=== PATIENT | male | born 1970 | race Caucasian/White ===

== ENCOUNTER 2019-12-14 13:35 | Outpatient (REF) | payer OTHER, SELFPAY ==
[2019-12-19 01:50] LABS: SARS-CoV-2 RNA Undetected (Undetected); SARS-CoV-2 Specimen Source Nasopharynx
== END 2019-12-14 13:55 ==
LOC: NCHCN 13:35
PROVIDERS: PCP General Practice; Visit Provider Nurse Practitioner Family
DX: Z20.828 Contact with and (suspected) exposure to other viral communicable diseases (principal)
CPT/HCPCS: U0003

== ENCOUNTER 2020-10-04 14:16 | Outpatient (REF) | payer OTHER, SELFPAY ==
[2020-10-04 14:37] LABS: Anion Gap 7.3 mmol/L (3-11); BUN 14 mg/dL (7-18); CO2 29.7 mmol/L (21.0-32.0); CREATININE 1.3 mg/dL (0.70-1.30); Calcium 8.9 mg/dL (8.5-10.1); Calculated LDL 97 mg/dL (<100); Chloride 106 mmol/L (98-107); Cholesterol 172 mg/dL (<200); Estimated GFR 58.43 (mL/min/1.73m2); Glucose 95 mg/dL (74-106); HDL Cholesterol 46 mg/dL (40-60); Potassium 4.4 mmol/L (3.5-5.1); Sodium 143 mmol/L (136-145); Triglyceride 146 mg/dL (<150)
== END 2020-10-04 14:17 | disposition home or self-care (01) ==
LOC: NCHCN 14:16
PROVIDERS: PCP General Practice; Visit Provider Nurse Practitioner Family
DX: Z00.00 Encounter for general adult medical examination without abnormal findings (principal); Z13.220 Encounter for screening for lipoid disorders; Z13.228 Encounter for screening for other metabolic disorders
CPT/HCPCS: 80048; 80061

== ENCOUNTER → 2021-03-09 11:17 | Outpatient (BNVA) | payer OTHER, SELFPAY | PROVIDERS: PCP Nurse Practitioner Family; Referring Provider Nurse Practitioner Family; Visit Provider Physical Therapy Assistant | DX: Z12.11 Encounter for screening for malignant neoplasm of colon (principal) ==

== ENCOUNTER 2021-05-17 00:56 | Outpatient (CLI) | payer OTHER, SELFPAY ==
[2021-05-17 15:29] LABS: Source Nasal/Nares
[2021-05-17 16:57] LABS: COVID-19 PCR Negative (Negative)
== END 2021-05-17 00:57 | disposition home or self-care (01) ==
LOC: LBO 00:56
PROVIDERS: PCP Nurse Practitioner Family; Visit Provider Surgery
DX: Z20.822 Contact with and (suspected) exposure to COVID-19 (principal)
CPT/HCPCS: 87635

== ENCOUNTER 2021-05-19 06:03 | Day surgery (SDC) | payer OTHER, SELFPAY ==
--- NOTE | 2021-05-18 22:15 | ROE_ITS ---
Date of service: 05/19/21 Operative Note Operative Note DATE OF PROCEDURE: 05/19/21 PRE-OP DIAGNOSIS: CRC screening SURGEON: Sasha De La Fuente ANESTHESIA TYPE: General:No Airway Refer to Anesthesia Record Patient was transported to: same day Patient's condition: stable Procedure Description: After informed consent was obtained the patient was taken to the procedure room and placed in a left decubitous position. Monitors were applied and a time out was done. The patients name, date of , procedure, allergies to medications and metal in their body was reviewed. The patient was then sedated. Once sedated and comfortable a rectal exam was done. External exam was normal, other than a very small external hemorrhoidal tag it was o'clock position. Internal exam revealed a normal sphincter tone and no palpable masses. The scope was then introduced and retrofelexed. No internal hemorrhoids were identified. The scope was then advanced to the cecum without difficulty. The TI and appendiceal orifice were identified. The prep was good. Interaction time was 7 minutes. the scope was then slowly retracted over minutes back into the rectum. Polyps were removed at there are no polyps, AVMs or diverticula.. Random biopsies were taken of the cecum, 60, and in the rectum-he is a [place] and had some problems with chronic diarrhea in the past. The scope was removed and the patient was woken up and taken back to Same day surgery in stable condition. The patient tolerated the procedure well and there were no immediate complications. Follow up: The patient should follow up in 10 years unless they develop changes in bowel habits or other new gastrointestinal complaints.
--- NOTE | 2021-05-18 22:17 | W.PM.DSUDISC ---
Discharge Plan Disposition Patient Disposition: HOME Condition: Good Discharge Details Reason For Visit: colon scope Attending Provider: Sasha De La Fuente Primary Care Provider: Libia Butcher Home Meds and New Rx's Prescriptions: Discontinued polyethylene glycol 3350 17 gram/dose powder 238 g PO ONCE Qty: 238 RF: 0 bisacodyl [Dulcolax (bisacodyl)] 5 mg tablet,delayed release (DR/EC) 5 mg PO ONCE Qty: 4 RF: 0 Discharge Instructions Additional Instructions: DSU Colonoscopy Post-Op Instructions Instructions for Everyone who is given Anesthesia: For your safety, please do the following for the next twenty-four (24) hours: *Do Not operate a motor vehicle (car, truck, motorcycle, etc.) *Do Not drink alcoholic beverages or use any recreational drugs for the first 24 hours or while taking pain medications. The medications in your body may have a reaction that can be dangerous. *Do Not make any important decisions or sign any important papers. Findings:Normal I did take a few random biopsies; I will send you a letter in 2 to 3 weeks time with the results. Follow up: Repeat in 10 years time 1. No lifting over 20 pounds or strenuous activity for the first 24 hours after your procedure. After 24 hours there are no restrictions on your activity but you may feel fatigued for a few days. 2. After you arrive home you may have a light meal and return to your normal diet as you can tolerate it without feeling sick to your stomach. 3. You may have a bloated, gaseous feeling in your belly (abdomen) after a colonoscopy. Passing gas and belching will help. Walking or lying down on your left side with your knees flexed may relieve the discomfort. Call the office at [phone] (Office) or [phone] (Hospital) right away if you notice any of the following: a.Vomiting of blood or ?coffee ground stools?. b.Rectal bleeding 1Tbsp, blood clots or continuous bleeding. c.Severe belly (abdominal) pain. d.A hard distended belly (abdomen) and an inability to pass gas. 4. Please don?t expect to have a normal BM (bowel movement) for 2-3 days after your procedure. 5. If there are questions regarding the findings of your procedure, please contact your doctor 6. If you are unable to contact your doctor with a problem, contact the [facility] at [phone]. 7. Continue all your regular medications unless directed otherwise. I understand the above instructions and have no questions. Signature of Patient or Adult Escort Name of Responsible Adult Escort Signature of Nurse Date/Time Activity:: see above Diet:: see above Discharge Orders Discharge Orders: Discharge Order (Routine); Ordered 05/18/21 Ordered By: Sasha De La Fuente DS: Diagnosis Discharge Diagnosis (1) Screening for colon cancer: Status: Acute
[2021-05-19 06:20] VITALS: BP 120/93; PULSE 65; RESP 17; TEMP 36.3; O2SAT 98
[2021-05-19] MEDS: Lactated Ringers 1,000 ML 80 ML IV (06:33)
--- NOTE | 2021-05-19 06:40 | NUR.NOTE ---
Nursing Note:Pt got a bit light headed after IV was placed. Pt was provided w/ cool cloths to head and neck, foot of bed raised and HOB lowered, cool air applied until Pt felt better. Pt then returned to 45 degree HOB as requested. Pt has call briones and is encouraged to ring if needed.HE
--- NOTE | 2021-05-19 07:00 | W.ANESPRE ---
General Info Date of Service Date Performed: 06/07/21 Height: 5 ft 10 in Weight: 84.4 kg Body Mass Index (BMI): 26.6 Surgical Procedure: Operation Date: 05/19/21 07:35 Proposed Procedures Side Surgeon p Festus De La Fuente, Meds Allergies and Home Medications Allergies Allergy/AdvReac Type Severity Reaction Status Date / Time No Known Allergies Allergy Verified 05/19/21 06:25 Current Visit Medications: Current Medications Generic Name Dose Route Start Last Admin Trade Name Freq PRN Reason Stop Dose Admin Hyoscyamine Sulfate 0.125 mg 05/18/21 22:15 Hyoscyamine 0.125 Mg Sl/Oral/Chew SL DIRECTED PRN Ringer's Solution 1,000 mls @ 80 mls/hr 05/19/21 06:00 05/19/21 06:33 IV 06/17/21 23:59 80 mls/hr INFUSION KRISTEL Administration IV Miscellaneous Supplies 1 each 05/19/21 06:00 Iv Access IV 06/17/21 23:59 DIRECTED KRISTEL Ondansetron HCl 4 mg 05/18/21 22:15 Ondansetron 4 Mg/2 Ml Vial IVP Q4H PRN PRN Nausea / Vomiting Sodium Chloride 0 ml 05/19/21 06:00 Normal Saline Flush 10 Ml Syr IV 06/17/21 23:59 PRN PRN Sodium Chloride 0 ml 05/19/21 06:00 Normal Saline 10 Ml Vial IJ 06/17/21 23:59 DIRECTED PRN Sterile Water 0 ml 05/19/21 06:00 Water,Injection,Sterile 10 Ml Vial IJ 06/17/21 23:59 DIRECTED PRN PFSH Active Problems Active Problems: Problem Status Onset Code Screening for colon cancer Z12.11 Surgical History Surgical History Hx of colonoscopy Tobacco Smoking/Tobacco Use Status: Never Alcohol Alcohol Intake: current Alcohol intake frequency: a few times a month Alcohol type: beer Substance Use Substance use: Never Substance use type: does not use Vital Signs and Lab Results Vital Signs Most Recent Vital Signs in EMR: Most Recent Vital Signs Temp Pulse Resp BP Pulse Ox 36.3 C L 65 17 120/93 H 98 05/19/21 06:20 05/19/21 06:20 05/19/21 06:20 05/19/21 06:20 05/19/21 06:20 Lab Results Blood Type / Crossmatch: No Data to Display Complete Blood Count: No Data to Display Complete Metabolic Panel: No Data to Display Liver Function Panel: No Data to Display Coagulation Panel: No Data to Display Cardiac Panel: No Data to Display Arterial Blood Gas: No Data to Display Venous Blood Gas: No Data to Display Pancreas Panel: No Data to Display Thyroid Panel: No Data to Display Infectious Disease: Coronavirus (COVID-19)(PCR) Negative (Negative) 05/17/21 11:00 05/17/21 Coronavirus 2019 Source Nasal/Nares 05/17/21 11:00 05/17/21 Blood Cultures: No Data to Display Toxicology Panel: No Data to Display Anesthesia Assessment and Plan Anesthesia History Personal History: No History of Anesthesia Complications Family History: No Family History of Anesthesia Complications Exercise Tolerance Exercise Tolerance: Metabolic Equivalents>4 Pertinent Negatives Pertinent Negatives: No Symptoms of GERD Cardiac & Pulmonary Exam Cardiac Exam: Normal S1/S2 Heart Sounds Pulmonary Exam: Clear Bilateral Breath Sounds Implantable Cardiac Device Does patient have a Pacemaker or an ICD?: No Airway Exam Known Difficult Airway: No Mallampati Class: 1 Mouth Opening: Normal (> 3cm) Thyromental Distance: Greater than 3 cm Neck Range of Motion: Full ROM Neck Circumference: Normal Teeth Condition: Normal Dentition ASA Classification ASA Score: ASA 1 Emergency Case?: No NPO Status NPO Status: NPO Clears >2 hours, Solids >8 hours Anesthesia Plan Resuscitation Status: Full Code Anesthesia Technique: General Anesthesia Airway Planned: Natural Airway Monitors Used: Standard Monitors
[2021-05-19 07:13] VITALS: BMI 26.6
--- NOTE | 2021-05-19 07:26 | W.PM.HP.N ---
Date of service: 05/19/21 Time of Service: 07:26 Assessment and Plan Assessment and plan (1) Screening for colon cancer: Status: Acute Assessment and plan: Plan:Colonscopy w/ MAC The patient will be scheduled by my office. The pt understands that they need to do a bowel prep and the importance of hydration during this. The patient understands there is a theoretical risk of renal failure. For healthy patients we use Gatorade/Miralax Prep. For anyone with renal concerns- GoLytely will be used. Plavix and coumadin will need to be held except in unusual circumstances. Patients in A. Fib do not need to be bridged with Lovenox or on CVA prophylaxis. A baby ASA can be continued but full dose ASA needs to be stopped for 10 days prior to the procedure. A complete H & P is required within 30 days of the procedure. MAC is used for the colonoscopy. Colonoscopy does not require antibiotics prophylaxis. Thank you for allowing me to participate in the care of this Patient. A copy of the Endoscopy report will be forwarded to your office. Informed consent is obtained for the procedural (explained in simple layman's terms that the pt and/or family could understand) explaining risks vs benefits and alternatives to the procedure and consequences if we do not do the procedure and need/rational for the procedure. Risks include but are not limited to: bleeding, infection, perforation of colon. This would necessitate emergency surgery to repair the damage w/ possible ostomy; and other associated complications w/ the required surgery. Also complications of anesthesia including aspiration, SC/CVA/. I discussed with the patient would they could expect during the procedure, post procedure and recovery time and risks. The patient understands that they need to have a ride home after the procedure. The patient was given all this information in writing and expressed understanding. to your office. If there are any questions or concerns please feel free to contact our office. History of Present Illness Narrative: pt has a benign medical history presents for colonoscopy screening pre-op. He reports having a Colonoscopy in 2004, which was unremarkable. He denies a family history of colon cancer. He denies any changes in bowel habits including bloody or black tarry stools, abdominal pain, diarrhea or constipation. He denies constitutional symptoms. Denies use of marijuana or any other recreational or illegal drugs. He denies chest pain, palpitations, dyspnea or dyspnea with exertion. He reports being physically active running (6+ miles) and lifting weights 3-4x/wk. He denies prior history or family history of adverse reactions or complications with anesthesia. The patient denies any history of stroke, SC, seizures, bleeding or clotting disorders. He denies having any implanted metal in his body. Patient completed a bowel prep last night. He has no more stool today. He is not having any chest pain or shortness of breath. No changes in his health status or medications. No abdominal pain or nausea. No fevers. All questions answered and patient is stable for procedure Review of Systems All systems reviewed & are unremarkable except as noted in HPI and below PFSH All Active Problems Screening for colon cancer (Acute) Surgical History Hx of colonoscopy Social History Smoking/Tobacco Use Status: Never Smoking risk assessment performed?: Yes Alcohol Intake: current Alcohol Intake frequency: a few times a month Alcohol type: beer Drug use: Never Substance use type: does not use Current gender identity: male Do you feel safe at home: Yes Do you feel safe in your relationship?: Yes Meds Allergies and Home Medications Allergies Allergy/AdvReac Type Severity Reaction Status Date / Time No Known Allergies Allergy Verified 05/19/21 06:25 Exam Narrative Exam Narrative: PHYSICAL EXAM GENERAL APPEARANCE: Alert, healthy appearance, oriented, in no acute distress HEAD, EYES, EARS, NECK, THROAT: Head is normocephalic, pupils equal, round, reactive to light and accommodation, ocular movement intact, sclera clear and no jaundice. Dentition intact. No sore throat. No jaw pain. No thrush LUNGS: normal respiration/nl chest excursion. Clear to auscultation B/l no R/R/W HEART: Regular rate and rhythm, ABDOMEN: non tender to palpation, no masses or distention, no hernias. Normal bowel sounds NEURO: no focal neuro deficits. Results Last Vital Signs Temp 36.3 C L 05/19/21 06:20 Pulse 65 05/19/21 06:20 Resp 17 05/19/21 06:20 BP 120/93 H 05/19/21 06:20 Pulse Ox 98 05/19/21 06:20
--- NOTE | 2021-05-19 07:51 | BOWEL_PTH ---
PATIENT: Tito Keith LOC: [facility] U#:[id number] AGE/SX: 50/M ROOM: RE05/19/[address]: Sasha De La Fuente : 1970 BED: DIS: 05/19/2021 SPEC #: [id number] RECD: 05/19/21 12:48 STATUS: JAZZY RELary #: [id number] DIMAS: 05/19/21 07:[address]: Sasha De La Fuente DEPT: Surgical Specimen RECD BY: Keya Wells ENTERED: 05/19/21 12:50 SP TYPE: Bowel OTHR DR: Libia Butcher Tissues: 1 - BIOPSY BOWEL 2 - BIOPSY BOWEL 3 - BIOPSY BOWEL Procedures: GROSS AND MICRO LEVEL 4 Comments: [id number]
--- NOTE | 2021-05-19 07:57 | W.ANESPRE ---
General Info Height: 5 ft 10 in Weight: 84.4 kg Body Mass Index (BMI): 26.6 Surgical Procedure: Operation Date: 05/19/21 07:35 Proposed Procedures Side Surgeon p Colonoscopy Sasha De La Fuente DO Meds Allergies and Home Medications Allergies Allergy/AdvReac Type Severity Reaction Status Date / Time No Known Allergies Allergy Verified 05/19/21 06:25 Current Visit Medications: Current Medications Generic Name Dose Route Start Last Admin Trade Name Freq PRN Reason Stop Dose Admin Hyoscyamine Sulfate 0.125 mg 05/18/21 22:15 Hyoscyamine 0.125 Mg Sl/Oral/Chew SL DIRECTED PRN Ringer's Solution 1,000 mls @ 80 mls/hr 05/19/21 06:00 05/19/21 06:33 IV 06/17/21 23:59 80 mls/hr INFUSION KRISTEL Administration IV Miscellaneous Supplies 1 each 05/19/21 06:00 Iv Access IV 06/17/21 23:59 DIRECTED KRISTEL Ondansetron HCl 4 mg 05/18/21 22:15 Ondansetron 4 Mg/2 Ml Vial IVP Q4H PRN PRN Nausea / Vomiting Sodium Chloride 0 ml 05/19/21 06:00 Normal Saline Flush 10 Ml Syr IV 06/17/21 23:59 PRN PRN Sodium Chloride 0 ml 05/19/21 06:00 Normal Saline 10 Ml Vial IJ 06/17/21 23:59 DIRECTED PRN Sterile Water 0 ml 05/19/21 06:00 Water,Injection,Sterile 10 Ml Vial IJ 06/17/21 23:59 DIRECTED PRN PFSH Active Problems Active Problems: Problem Status Onset Code Screening for colon cancer Z12.11 Surgical History Surgical History Hx of colonoscopy Tobacco Smoking/Tobacco Use Status: Never Alcohol Alcohol Intake: current Alcohol intake frequency: a few times a month Alcohol type: beer Substance Use Substance use: Never Substance use type: does not use Vital Signs and Lab Results Vital Signs Most Recent Vital Signs in EMR: Most Recent Vital Signs Temp Pulse Resp BP Pulse Ox 36.3 C L 65 17 120/93 H 98 05/19/21 06:20 05/19/21 06:20 05/19/21 06:20 05/19/21 06:20 05/19/21 06:20 Lab Results Blood Type / Crossmatch: No Data to Display Complete Blood Count: No Data to Display Complete Metabolic Panel: No Data to Display Liver Function Panel: No Data to Display Coagulation Panel: No Data to Display Cardiac Panel: No Data to Display Arterial Blood Gas: No Data to Display Venous Blood Gas: No Data to Display Pancreas Panel: No Data to Display Thyroid Panel: No Data to Display Infectious Disease: Coronavirus (COVID-19)(PCR) Negative (Negative) 05/17/21 11:00 05/17/21 Coronavirus 2019 Source Nasal/Nares 05/17/21 11:00 05/17/21 Blood Cultures: No Data to Display Toxicology Panel: No Data to Display Anesthesia Assessment and Plan Anesthesia History Personal History: No History of Anesthesia Complications Family History: No Family History of Anesthesia Complications Exercise Tolerance Exercise Tolerance: Metabolic Equivalents>4 Implantable Cardiac Device Does patient have a Pacemaker or an ICD?: No Airway Exam Known Difficult Airway: No Mallampati Class: 1 Mouth Opening: Normal (> 3cm) Thyromental Distance: Greater than 3 cm Neck Range of Motion: Full ROM Neck Circumference: Normal Teeth Condition: Normal Dentition
[2021-05-19 08:07] VITALS: BP 128/78; PULSE 58; RESP 15; TEMP 36.7; O2SAT 98
--- NOTE | 2021-05-19 08:14 | W.ANESPOSTOP ---
Postoperative Evaluation Date, Time and Location Date Performed: 05/19/21 Time Performed: 08:14 Patient Location: Day Surgery Unit Vital Signs Most Recent Imported Vital Signs: Most Recent Vital Signs Temp Pulse Resp BP Pulse Ox 36.7 C 58 L 15 128/78 98 05/19/21 08:07 05/19/21 08:07 05/19/21 08:07 05/19/21 08:07 05/19/21 08:07 Pain Score Most Recent Pain Score: Most Recent Pain Score Pain Level 0 05/19/21 08:07 Assessment Mental Status: Arousable with meaningful communication Airway and Respiratory Function: Patent airway with normal (patient baseline) respiratory exam Cardiovascular Function: Hemodynamically Stable Hydration Status: Adequately Hydrated Nausea & Vomiting: No Nausea or Vomiting Pain: Pt. Denies Any Pain Peripheral Nerve Block: Patient did not receive a nerve block
[2021-05-19 08:40] VITALS: BP 117/85; PULSE 54; RESP 16; TEMP 36.8; O2SAT 100
== END 2021-05-19 09:13 | disposition home or self-care (01) ==
LOC: SUR 06:04
PROVIDERS: PCP Nurse Practitioner Family; Visit Provider Surgery
PROC: 0DJD8ZZ Inspection of Lower Intestinal Tract, Via Natural or Artificial Opening Endoscopic (ICD-10-PCS; CPT 45378; principal; 2021-05-19 07:30)
DX: Z12.11 Encounter for screening for malignant neoplasm of colon (principal)
CPT/HCPCS: 45380; 88305; J2704

== ENCOUNTER 2022-11-12 17:27 | Outpatient (REF) | payer OTHER, SELFPAY ==
[2022-11-12 18:13] LABS: ALT 60 U/L (16-63); AST 31 U/L (15-37); Albumin 4.3 g/dL (3.4-5.0); Alkaline Phosphatase 94 U/L (46-116); Anion Gap 8.8 mmol/L (3-11); BUN 16 mg/dL (7-18); Bilirubin, Total 0.6 mg/dL (0.2-1.0); CO2 28.2 mmol/L (21.0-32.0); CREATININE 1.4 mg/dL (0.70-1.30); Calcium 8.8 mg/dL (8.5-10.1); Calculated LDL 112 mg/dL (<100); Chloride 104 mmol/L (98-107); Cholesterol 177 mg/dL (<200); Estimated GFR 60.47 (mL/min/1.73m2); Glucose 98 mg/dL (74-106); HDL Cholesterol 47 mg/dL (40-60); Potassium 4.1 mmol/L (3.5-5.1); Sodium 141 mmol/L (136-145); Total Protein 7.3 g/dL (6.4-8.2); Triglyceride 91 mg/dL (<150)
[2022-11-13 19:50] LABS: PSA, Screening 0.6 ng/mL (<=3.5)
== END 2022-11-12 17:28 | disposition home or self-care (01) ==
LOC: NCHCN 17:27
PROVIDERS: PCP Nurse Practitioner Family; Visit Provider Nurse Practitioner Family
DX: Z13.220 Encounter for screening for lipoid disorders (principal); Z12.5 Encounter for screening for malignant neoplasm of prostate; Z13.1 Encounter for screening for diabetes mellitus
CPT/HCPCS: 80053; 80061; 84153

== ENCOUNTER 2023-11-01 12:44 | Outpatient (REF) | payer OTHER, SELFPAY ==
[2023-11-01 15:07] LABS: Abs Immature Grans 0.01 10^3/uL (0.0-0.06); Absolute Basophil Count 0.07 10^3/uL (0.0-0.2); Absolute Eosinophil Count 0.15 10^3/uL (0.0-0.7); Absolute Lymphocyte Count 2.23 10^3/uL (1.2-3.4); Absolute Monocyte Count 0.83 10^3/uL (0.1-0.8); Absolute Neutrophil Count 6.28 10^3/uL (1.2-6.7); Basophils % 0.7 %; Eosinophils % 1.6 %; HCT 49.4 % (40.0-50.0); HGB 17.1 g/dL (13.5-17.5); Immature Grans % 0.1 %; Lymphocytes % 23.3 %; MCHC 34.6 % (32.0-36.0); MCV 90 fL (80-95); MPV 10.1 fL (8.0-11.0); Monocytes % 8.7 %; Neutrophils % 65.6 %; Platelet Count 274 10^3/uL (130-400); RBC 5.52 10^6/uL (4.36-5.78); RDW 12.3 % (11.8-14.1); RDW-SD 40.8 fL; WBC 9.57 10^3/uL (4.4-10.8)
[2023-11-01 15:20] LABS: ALT 71 U/L (16-63); AST 31 U/L (15-37); Albumin 4.3 g/dL (3.4-5.0); Alkaline Phosphatase 96 U/L (46-116); Anion Gap 5.2 mmol/L (3-11); BUN 14 mg/dL (7-18); Bilirubin, Total 0.5 mg/dL (0.2-1.0); CO2 31.8 mmol/L (21.0-32.0); CREATININE 1.2 mg/dL (0.70-1.30); Calcium 9.2 mg/dL (8.5-10.1); Calculated LDL 83 mg/dL (<100); Chloride 103 mmol/L (98-107); Cholesterol 178 mg/dL (<200); Estimated GFR 72.31 (mL/min/1.73m2); Glucose 93 mg/dL (74-106); HDL Cholesterol 45 mg/dL (40-60); Potassium 4.7 mmol/L (3.5-5.1); Sodium 140 mmol/L (136-145); Total Protein 7.3 g/dL (6.4-8.2); Triglyceride 252 mg/dL (<150)
== END 2023-11-01 12:45 | disposition home or self-care (01) ==
LOC: NCHCN 12:44
PROVIDERS: Visit Provider Nurse Practitioner Family
DX: Z13.6 Encounter for screening for cardiovascular disorders (principal); Z13.0 Encounter for screening for diseases of the blood and blood-forming organs and certain disorders involving the immune mechanism
CPT/HCPCS: 80053; 80061; 85025

== ENCOUNTER 2024-12-10 16:45 | Outpatient (REF) | payer OTHER, SELFPAY ==
[2024-12-10 19:59] LABS: ALT 54 U/L (16-63); AST 25 U/L (15-37); Albumin 4.2 g/dL (3.4-5.0); Alkaline Phosphatase 105 U/L (46-116); Anion Gap 8.2 mmol/L (3-11); BUN 18 mg/dL (7-18); Bilirubin, Total 0.5 mg/dL (0.2-1.0); CO2 29.8 mmol/L (21.0-32.0); Calcium 9.4 mg/dL (8.5-10.1); Chloride 104 mmol/L (98-107); Estimated GFR 89.44 (mL/min/1.73m2); Glucose 98 mg/dL (74-106); Potassium 4.6 mmol/L (3.5-5.1); Sodium 142 mmol/L (136-145); Total Protein 7.0 g/dL (6.4-8.2)
[2024-12-11 19:16] LABS: PSA, Screening 0.7 ng/mL (<=3.5)
== END 2024-12-10 16:46 | disposition home or self-care (01) ==
LOC: NCHCN 16:45
PROVIDERS: Visit Provider Physician Assistant
DX: Z00.00 Encounter for general adult medical examination without abnormal findings (principal); Z12.5 Encounter for screening for malignant neoplasm of prostate
CPT/HCPCS: 80053; 84153